=== PATIENT | female | born 1970 | race African-American/Black ===

== ENCOUNTER 2019-02-17 08:26 | Day surgery (SDC) | payer OTHER ==
[2019-02-16 15:17] VITALS: BMI 26.5
[2019-02-17 10:03] VITALS: TEMP 97.5
[2019-02-17 15:59] VITALS: BP 100/64; PULSE 56
== END 2019-02-17 10:45 | disposition home or self-care (01) ==
LOC: JASU-ENDO 08:26
PROVIDERS: ATTEND Internal Medicine Gastroenterology
PROC: 0DJD8ZZ Inspection of Lower Intestinal Tract, Via Natural or Artificial Opening Endoscopic (ICD-10-PCS; principal; 2019-02-17 09:45)
DX: Z12.11 Encounter for screening for malignant neoplasm of colon (principal); D50.9 Iron deficiency anemia, unspecified; K64.8 Other hemorrhoids
CPT/HCPCS: 81025

== ENCOUNTER 2019-03-03 08:30 | Day surgery (SDC) | payer OTHER ==
[2019-02-28 15:37] VITALS: BMI 28.3
[2019-03-03 10:21] VITALS: TEMP 97.6
[2019-03-03 11:19] VITALS: BP 124/65; PULSE 86
--- NOTE | 2019-03-04 13:41 | PATH ---
Surgical Pathology Report Patient Name: FRANCISCO BANUELOS [facility]. Rec. #: [id number] /Age/Gender: 1970 (Age: 48) / F Account: [id number] Location: U-ENDOSCOPY Taken: 03/03/2019 Received: 03/03/2019 Reported: 03/04/2019 Physicians: Varinder Montaño D.O. Specimen(s) Received A: ANTRAL EROSION B: ANGULARIS AND BODY C: GASTRIC POLYP Clinical History Anemia Postoperative diagnosis: Gastric polyp, gastritis Final Diagnosis A. STOMACH, ANTRAL EROSION, BIOPSY: GASTRIC ANTRAL MUCOSA WITH MILD CHRONIC ACTIVE GASTRITIS. IMMUNOHISTOCHEMICAL STAIN FOR H. PYLORI IS NEGATIVE. B. STOMACH, ANGULARIS AND BODY, BIOPSY: GASTRIC BODY MUCOSA WITH MILD CHRONIC GASTRITIS. IMMUNOHISTOCHEMICAL STAIN FOR H. PYLORI IS NEGATIVE. C. GASTRIC POLYP, BIOPSY: FUNDIC GLAND POLYP. IMMUNOHISTOCHEMICAL STAIN FOR H. PYLORI IS NEGATIVE. Electronically Signed Daysi Austin M.D. Gross Description A. Received in formalin, labeled "biopsy antral erosion" are 4 palma, irregular portions of soft tissue ranging from 0.2-0.3 cm. in greatest dimension. The specimens are submitted in toto in one cassette. B. Received in formalin, labeled "biopsy angularis and body" are 3 palma, irregular portions of soft tissue ranging from 0.2-0.4 cm. in greatest dimension. The specimens are submitted in toto in one cassette. C. Received in formalin, labeled "biopsy gastric polyp" are 2 palma, irregular portions of soft tissue measuring 0.2 and 0.5 cm. in greatest dimension. The specimens are submitted in toto in one cassette. DL/03/03/2019 saudi/03/03/2019
== END 2019-03-03 11:18 | disposition home or self-care (01) ==
LOC: JASU-ENDO 08:30
PROVIDERS: ATTEND Internal Medicine Gastroenterology
PROC: 0DB68ZX Excision of Stomach, Via Natural or Artificial Opening Endoscopic, Diagnostic (ICD-10-PCS; principal; 2019-03-03 09:30)
DX: D64.9 Anemia, unspecified (principal); K31.7 Polyp of stomach and duodenum; K25.9 Gastric ulcer, unspecified as acute or chronic, without hemorrhage or perforation; K29.50 Unspecified chronic gastritis without bleeding; E11.9 Type 2 diabetes mellitus without complications; I10 Essential (primary) hypertension; Z79.84 Long term (current) use of oral hypoglycemic drugs
CPT/HCPCS: 81025; 88305-TC; 88342-TC

== ENCOUNTER 2019-11-18 13:57 | Inpatient (IN) | payer OTHER ==
[2019-11-18 16:14] LABS: BASO % 2.5 % (0-2.0); EOS % 6.3 % (0-4.5); LYMPH % 28.8 % (8-40); MCHC 28.9 g/dl (32.0-36.0); MONO % 3.7 % (3.8-10.2); NEUT % 58.7 % (42.8-82.8); RBC 3.89 M/mm3 (3.60-5.2); RDW 23.5 % (11.6-15.6)
[2019-11-18 16:25] LABS: INR 1.03 (0.83-1.09); PROTHROMBIN TIME (PATIENT) 12.1 SEC (9.7-13.0)
[2019-11-18 16:28] LABS: MCH 15.9 pg (25.7-33.7)
[2019-11-18 16:30] LABS: HEMATOCRIT 21.4 % (32.4-45.2); HEMOGLOBIN 6.2 GM/dL (10.7-15.3)
[2019-11-18 16:55] LABS: BILIRUBIN,TOTAL 0.7 mg/dL (0.2-1); BLOOD UREA NITROGEN 9.5 mg/dL (7-18); CALCIUM 8.9 mg/dL (8.5-10.1); CREATININE 0.7 mg/dL (0.55-1.3); POTASSIUM 4.3 mmol/L (3.5-5.1); TOT PROT 7.7 g/dl (6.4-8.2)
[2019-11-18] MEDS ORDERED: ACETAMINOPHEN 325 MG TABLET (FP) PO PRN (17:58)
[2019-11-18 19:32] LABS: ANISOCYTOSIS 3+; MACROCYTOSIS 1+; OVALOCYTE 1+; PLATELET ESTIMATE NORMAL; TEAR DROP CELLS 1+
[2019-11-18] MEDS ORDERED: GABAPENTIN 100 MG CAPSULE ONE (21:07)
[2019-11-18] MEDS: INSULIN SLIDING SCALE (NOVOLOG) 1 VIAL SQ SCH (21:32)
[2019-11-18] MEDS: GABAPENTIN 100 MG CAPSULE PO SCH (21:32)
[2019-11-18] MEDS ORDERED: INSULIN SLIDING SCALE (NOVOLOG) 1 VIAL SQ SCH (22:00)
[2019-11-18] MEDS ORDERED: INSULIN (LEVEMIR) 100 UNITS/ML UNITS SQ SCH (22:00)
[2019-11-19 02:10] VITALS: BMI 29.2
[2019-11-19] MEDS: INSULIN SLIDING SCALE (NOVOLOG) 1 VIAL SQ SCH ×2 (06:11→11:31)
[2019-11-19 07:44] LABS: HEMATOCRIT 28.7 % (32.4-45.2); HEMOGLOBIN 8.4 GM/dL (10.7-15.3); MCHC 29.3 g/dl (32.0-36.0); MEAN CELL VOLUME 61.2 fl (80-96); MEAN PLT VOLUME 8.4 fl (7.5-11.1); PLATELET COUNT 210 K/MM3 (134-434); RBC 4.69 M/mm3 (3.60-5.2); RDW 29.2 % (11.6-15.6); WHITE BLOOD COUNT 5.7 K/mm3 (4.0-10.0)
[2019-11-19 08:14] LABS: ALBUMIN 3.5 g/dl (3.4-5.0); BILIRUBIN,TOTAL 1.2 mg/dL (0.2-1); CALCIUM 8.7 mg/dL (8.5-10.1); CREATININE 0.6 mg/dL (0.55-1.3); POTASSIUM 4.1 mmol/L (3.5-5.1); TOT PROT 6.8 g/dl (6.4-8.2)
[2019-11-19] MEDS ORDERED: IRON SUCROSE INJECTION 200 MG in SODIUM CHLORIDE 90 ML IVPB ONE (08:47)
[2019-11-19] MEDS ORDERED: PT OWN MED DRAWER 7, Y5N ONE (09:29)
[2019-11-19] MEDS: GABAPENTIN 100 MG CAPSULE PO SCH (09:33)
[2019-11-19] MEDS ORDERED: NEBIVOLOL 10 MG TABLET (FP) PO SCH (10:00)
[2019-11-19] MEDS ORDERED: FERROUS SO4 325 MG TABLET (FP) PO SCH (10:00)
[2019-11-19] MEDS ORDERED: LISINOPRIL 20 MG TABLET PO SCH (10:00)
[2019-11-19 10:28] VITALS: BP 132/79; PULSE 76; TEMP 98.1
== END 2019-11-19 14:37 | disposition home or self-care (01) | DRG 663 ==
LOC: JER 13:57 → JERBED 17:01 → J8W 11-19 01:45
PROVIDERS: ATTEND Internal Medicine
PROC: 30233N1 Transfusion of Nonautologous Red Blood Cells into Peripheral Vein, Percutaneous Approach (ICD-10-PCS; principal; 2019-11-18)
DX: D62 Acute posthemorrhagic anemia (principal); D25.9 Leiomyoma of uterus, unspecified; N92.0 Excessive and frequent menstruation with regular cycle; D50.9 Iron deficiency anemia, unspecified; E78.5 Hyperlipidemia, unspecified; E11.21 Type 2 diabetes mellitus with diabetic nephropathy; E11.42 Type 2 diabetes mellitus with diabetic polyneuropathy; I10 Essential (primary) hypertension; K64.9 Unspecified hemorrhoids
CPT/HCPCS: 36415; 36430; 80053; 82962; 85025; 85027; 85610; 86850; 86900; 86901; 86922; 93005; 93010; 99285-25; J1756; P9058; U0003

== ENCOUNTER 2020-08-03 06:24 | Inpatient (IN) | payer OTHER ==
[2020-08-03] MEDS ORDERED: morphine SULFATE 4 MG/ML VIAL ONE (06:35)
[2020-08-03] MEDS ORDERED: morphine SULFATE 4 MG/ML VIAL IVPUSH ONE (06:39)
[2020-08-03] MEDS ORDERED: ONDANSETRON 4 MG/2 ML VIAL IVPUSH ONE (07:00)
[2020-08-03] MEDS ORDERED: SODIUM CHLORIDE 1,000 ML IV STA ×2 (07:11→08:39)
[2020-08-03 07:12] LABS: BASO % 0.4 % (0-2.0); EOS % 3.3 % (0-4.5); HEMATOCRIT 42.6 % (32.4-45.2); HEMOGLOBIN 14.1 GM/dL (10.7-15.3); LYMPH % 8.5 % (8-40); MCH 26.7 pg (25.7-33.7); MCHC 33.1 g/dl (32.0-36.0); MEAN CELL VOLUME 80.6 fl (80-96); MEAN PLT VOLUME 8.6 fl (7.5-11.1); MONO % 1.7 % (3.8-10.2); NEUT % 86.1 % (42.8-82.8); PLATELET COUNT 159 K/MM3 (134-434); RBC 5.28 M/mm3 (3.60-5.2); RDW 14.9 % (11.6-15.6); WHITE BLOOD COUNT 9.9 K/mm3 (4.0-10.0)
[2020-08-03] MEDS ORDERED: ACETAMINOPHEN 1000 MG/100 ML VIAL (NON FORMULARY) IVPB ONE (07:12)
[2020-08-03 07:16] LABS: INR 0.94 (0.83-1.09); PROTHROMBIN TIME (PATIENT) 11.6 SEC (9.7-13.0)
[2020-08-03 07:19] LABS: ACTIVATED PTT 26.4 SECONDS (25.2-36.5)
[2020-08-03] MEDS ORDERED: ACETAMINOPHEN INJECTION 100 ML IVPB ONE (07:19)
[2020-08-03] MEDS ORDERED: ONDANSETRON 4 MG/2 ML VIAL ONE (07:19)
[2020-08-03 07:24] LABS: CHLORIDE 107 mmol/L (98-107); SODIUM 138 mmol/L (136-145)
[2020-08-03 07:26] LABS: ALBUMIN 3.7 g/dl (3.4-5.0); ANION GAP 6 MMOL/L (8-16); BLOOD UREA NITROGEN 9.4 mg/dL (7-18); CALCIUM 9.1 mg/dL (8.5-10.1); CO2 24 mmol/L (21-32)
[2020-08-03 07:27] LABS: GLUCOSE,RANDOM 234 mg/dL (74-106)
[2020-08-03 07:29] LABS: SGPT/ALT 42 U/L (13-61)
[2020-08-03 07:30] LABS: CREATININE 0.8 mg/dL (0.55-1.3); SGOT/AST 64 U/L (15-37)
[2020-08-03 07:31] LABS: BILIRUBIN,TOTAL 0.9 mg/dL (0.2-1); TOT PROT 7.5 g/dl (6.4-8.2)
[2020-08-03 07:34] LABS: ALK PHOS 106 U/L (45-117)
[2020-08-03 07:36] LABS: LACTIC ACID 2.6 mmol/L (0.4-2.0)
[2020-08-03] MEDS ORDERED: PIPERACILLIN/TAZOB 3.375 GM 3.375 GM in DEXTROSE 5%-WATER - 50 ML IVPB ONE (07:50)
[2020-08-03] MEDS ORDERED: LACTATED RINGERS SOLUTION 1000 ML INFUS.BAG IV ONE (07:50)
[2020-08-03] MEDS ORDERED: PIPERACILLIN/TAZOB 3.375 GM 3.375 GM/50 ML BAG IVPB ONE (08:38)
[2020-08-03 10:33] LABS: URINE APPEARANCE CLEAR; URINE BILIRUBIN NEGATIVE (NEGATIVE); URINE COLOR YELLOW; URINE GLUCOSE (UA) NEGATIVE (NEGATIVE); URINE KETONE NEGATIVE (NEGATIVE)
[2020-08-03 10:34] LABS: PH,URINE 5.5 (5.0-8.0); URINE LEUK ESTERASE NEGATIVE (NEGATIVE); URINE NITRITE NEGATIVE (NEGATIVE); URINE PROTEIN NEGATIVE (NEGATIVE); URINE UROBILINOGEN 0.2 mg/dL (0.2-1.0)
[2020-08-03 10:37] LABS: CALCIUM 8.6 mg/dL (8.5-10.1)
[2020-08-03 10:38] LABS: BLOOD UREA NITROGEN 9.3 mg/dL (7-18)
[2020-08-03 10:40] LABS: CREATININE 0.7 mg/dL (0.55-1.3)
[2020-08-03 11:30] LABS: LACTIC ACID 2.5 mmol/L (0.4-2.0)
[2020-08-03] MEDS ORDERED: PIPERACILLIN/TAZOBACTAM 3.375 GM VIAL IVPB ONE ×3 (16:46→22:32)
[2020-08-03] MEDS ORDERED: DEXTROSE 5%-WATER - 50 ML IVPB ONE ×3 (16:46→22:32)
[2020-08-03] MEDS: MORPHINE SULFATE 2 MG/ML VIAL IVPUSH PRN (16:49)
[2020-08-03] MEDS: LACTATED RINGERS SOLUTION 1,000 ML IV SCH (16:50)
[2020-08-03] MEDS: PIPERACILLIN/TAZOB 3.375 GM 3.375 GM in DEXTROSE 5%-WATER - 50 ML IVPB SCH ×2 (16:51→22:00)
[2020-08-03] MEDS: INSULIN SLIDING SCALE (NOVOLOG) 1 VIAL SQ SCH ×2 (17:12→22:40)
[2020-08-03] MEDS: ACETAMINOPHEN 1000 MG/100 ML VIAL (NON FORMULARY) IVPB PRN (22:36)
[2020-08-04] MEDS ORDERED: LACTATED RINGERS SOLUTION 1,000 ML IV SCH (00:01)
[2020-08-04] MEDS: MORPHINE SULFATE 2 MG/ML VIAL IVPUSH PRN (00:20)
[2020-08-04] MEDS: PIPERACILLIN/TAZOB 3.375 GM 3.375 GM in DEXTROSE 5%-WATER - 50 ML IVPB SCH ×5 (04:00→21:35)
[2020-08-04] MEDS ORDERED: PIPERACILLIN/TAZOBACTAM 3.375 GM VIAL IVPB ONE ×3 (04:50→19:34)
[2020-08-04] MEDS ORDERED: DEXTROSE 5%-WATER - 50 ML IVPB ONE ×3 (04:50→19:34)
[2020-08-04] MEDS: INSULIN SLIDING SCALE (NOVOLOG) 1 VIAL SQ SCH ×4 (06:19→21:35)
[2020-08-04 08:07] LABS: HEMATOCRIT 37.6 % (32.4-45.2); HEMOGLOBIN 12.4 GM/dL (10.7-15.3); MCH 26.5 pg (25.7-33.7); MCHC 32.9 g/dl (32.0-36.0); MEAN CELL VOLUME 80.7 fl (80-96); MEAN PLT VOLUME 8.7 fl (7.5-11.1); PLATELET COUNT 145 K/MM3 (134-434); RBC 4.66 M/mm3 (3.60-5.2); RDW 15.4 % (11.6-15.6); WHITE BLOOD COUNT 6.7 K/mm3 (4.0-10.0)
[2020-08-04 08:28] LABS: ALBUMIN 3.3 g/dl (3.4-5.0); BLOOD UREA NITROGEN 7.6 mg/dL (7-18); CALCIUM 9.2 mg/dL (8.5-10.1)
[2020-08-04 08:29] LABS: MAGNESIUM 1.9 mg/dL (1.8-2.4)
[2020-08-04 08:31] LABS: CREATININE 0.7 mg/dL (0.55-1.3)
[2020-08-04 08:32] LABS: PHOSPHOROUS 3.4 mg/dL (2.5-4.9)
[2020-08-04 08:33] LABS: BILIRUBIN,TOTAL 2.1 mg/dL (0.2-1); TOT PROT 6.4 g/dl (6.4-8.2)
[2020-08-04] MEDS ORDERED: PT OWN MED DRAWER 7, Y5N ONE (09:59)
[2020-08-04] MEDS: LISINOPRIL 20 MG TABLET PO SCH ×2 (10:01→12:11)
[2020-08-04] MEDS: ACETAMINOPHEN 1000 MG/100 ML VIAL (NON FORMULARY) IVPB PRN (11:18)
[2020-08-05] MEDS ORDERED: DEXTROSE 5%-WATER - 50 ML IVPB ONE ×4 (02:27→21:47)
[2020-08-05] MEDS ORDERED: PIPERACILLIN/TAZOBACTAM 3.375 GM VIAL IVPB ONE ×4 (02:27→21:46)
[2020-08-05] MEDS: PIPERACILLIN/TAZOB 3.375 GM 3.375 GM in DEXTROSE 5%-WATER - 50 ML IVPB SCH ×7 (03:10→22:04)
[2020-08-05] MEDS: MORPHINE SULFATE 2 MG/ML VIAL IVPUSH PRN (04:01)
[2020-08-05] MEDS: INSULIN SLIDING SCALE (NOVOLOG) 1 VIAL SQ SCH ×4 (06:12→22:03)
[2020-08-05 07:49] LABS: BASO % 0.6 % (0-2.0); EOS % 8.8 % (0-4.5); HEMATOCRIT 35.5 % (32.4-45.2); HEMOGLOBIN 11.6 GM/dL (10.7-15.3); MCH 26.2 pg (25.7-33.7); MCHC 32.7 g/dl (32.0-36.0); MEAN CELL VOLUME 80.1 fl (80-96); MEAN PLT VOLUME 8.6 fl (7.5-11.1); MONO % 5.8 % (3.8-10.2); NEUT % 64.8 % (42.8-82.8); PLATELET COUNT 139 K/MM3 (134-434); RBC 4.42 M/mm3 (3.60-5.2); RDW 15.5 % (11.6-15.6); WHITE BLOOD COUNT 4.1 K/mm3 (4.0-10.0)
[2020-08-05 08:34] LABS: CALCIUM 8.8 mg/dL (8.5-10.1)
[2020-08-05 08:36] LABS: BLOOD UREA NITROGEN 8.6 mg/dL (7-18)
[2020-08-05 08:38] LABS: CREATININE 0.5 mg/dL (0.55-1.3)
[2020-08-05 08:41] LABS: BILIRUBIN,TOTAL 1.4 mg/dL (0.2-1)
[2020-08-05] MEDS: METOCLOPRAMIDE HCL INJECTION 10 MG/2 ML VIAL IVPUSH PRN (09:49)
[2020-08-05] MEDS: LACTATED RINGERS SOLUTION 1,000 ML IV SCH (09:57)
[2020-08-05] MEDS: NEBIVOLOL 10 MG TABLET (FP) PO SCH (18:05)
[2020-08-05] MEDS: LISINOPRIL 20 MG TABLET PO SCH (18:05)
[2020-08-05] MEDS ORDERED: PT OWN MED DRAWER 7, Y5N ONE (18:09)
[2020-08-05] MEDS: LACTATED RINGERS SOLUTION 1,000 ML/1,000 ML INFUS.BAG IV SCH ×2 (19:22→22:08)
[2020-08-06] MEDS ORDERED: PIPERACILLIN/TAZOBACTAM 3.375 GM VIAL IVPB ONE ×4 (02:50→20:12)
[2020-08-06] MEDS ORDERED: DEXTROSE 5%-WATER - 50 ML IVPB ONE ×4 (02:51→20:12)
[2020-08-06] MEDS: PIPERACILLIN/TAZOB 3.375 GM 3.375 GM in DEXTROSE 5%-WATER - 50 ML IVPB SCH ×4 (03:03→20:36)
[2020-08-06] MEDS: INSULIN SLIDING SCALE (NOVOLOG) 1 VIAL SQ SCH ×4 (06:12→21:03)
[2020-08-06 08:08] LABS: BASO % 0.7 % (0-2.0); EOS % 10.7 % (0-4.5); HEMATOCRIT 36.7 % (32.4-45.2); HEMOGLOBIN 12.1 GM/dL (10.7-15.3); LYMPH % 30.1 % (8-40); MCH 26.3 pg (25.7-33.7); MCHC 32.9 g/dl (32.0-36.0); MEAN CELL VOLUME 79.9 fl (80-96); MEAN PLT VOLUME 8.6 fl (7.5-11.1); MONO % 5.4 % (3.8-10.2); NEUT % 53.1 % (42.8-82.8); PLATELET COUNT 158 K/MM3 (134-434); RDW 14.7 % (11.6-15.6); WHITE BLOOD COUNT 4.6 K/mm3 (4.0-10.0)
[2020-08-06 08:28] LABS: ALBUMIN 3.1 g/dl (3.4-5.0); BLOOD UREA NITROGEN 5.3 mg/dL (7-18); CALCIUM 8.9 mg/dL (8.5-10.1)
[2020-08-06 08:32] LABS: BILIRUBIN,TOTAL 1.2 mg/dL (0.2-1); CREATININE 0.5 mg/dL (0.55-1.3); TOT PROT 6.2 g/dl (6.4-8.2)
[2020-08-06] MEDS ORDERED: PT OWN MED DRAWER 7, Y5N ONE (09:50)
[2020-08-06] MEDS: FAMOTIDINE 20 MG/50 ML IVPB 20 MG/50 ML MG IVPB SCH ×2 (09:57→21:03)
[2020-08-06] MEDS: LACTATED RINGERS SOLUTION 1,000 ML/1,000 ML INFUS.BAG IV SCH ×2 (09:57→19:32)
[2020-08-06] MEDS: NEBIVOLOL 10 MG TABLET (FP) PO SCH (09:57)
[2020-08-06] MEDS: LISINOPRIL 20 MG TABLET PO SCH (09:57)
[2020-08-06] MEDS: ACETAMINOPHEN 1000 MG/100 ML VIAL (NON FORMULARY) IVPB PRN ×2 (10:29→20:04)
[2020-08-07] MEDS ORDERED: PIPERACILLIN/TAZOBACTAM 3.375 GM VIAL IVPB ONE ×4 (01:45→21:10)
[2020-08-07] MEDS ORDERED: DEXTROSE 5%-WATER - 50 ML IVPB ONE ×4 (01:45→21:11)
[2020-08-07] MEDS: PIPERACILLIN/TAZOB 3.375 GM 3.375 GM in DEXTROSE 5%-WATER - 50 ML IVPB SCH ×4 (02:39→21:18)
[2020-08-07] MEDS: ACETAMINOPHEN 1000 MG/100 ML VIAL (NON FORMULARY) IVPB PRN ×2 (04:51→23:35)
[2020-08-07] MEDS: METOCLOPRAMIDE HCL INJECTION 10 MG/2 ML VIAL IVPUSH PRN (05:51)
[2020-08-07] MEDS: INSULIN SLIDING SCALE (NOVOLOG) 1 VIAL SQ SCH ×4 (06:04→21:22)
[2020-08-07 07:16] LABS: BASO % 0.7 % (0-2.0); HEMATOCRIT 35.5 % (32.4-45.2); HEMOGLOBIN 11.7 GM/dL (10.7-15.3); LYMPH % 34.4 % (8-40); MCH 26.3 pg (25.7-33.7); MCHC 32.9 g/dl (32.0-36.0); MEAN CELL VOLUME 79.9 fl (80-96); MONO % 5.3 % (3.8-10.2); NEUT % 50.6 % (42.8-82.8); PLATELET COUNT 194 K/MM3 (134-434); RBC 4.44 M/mm3 (3.60-5.2); RDW 14.9 % (11.6-15.6); WHITE BLOOD COUNT 4.8 K/mm3 (4.0-10.0)
[2020-08-07 07:51] LABS: ALBUMIN 3.3 g/dl (3.4-5.0); BLOOD UREA NITROGEN 6.3 mg/dL (7-18); CALCIUM 9.1 mg/dL (8.5-10.1)
[2020-08-07 07:56] LABS: BILIRUBIN,TOTAL 1.3 mg/dL (0.2-1); CREATININE 0.6 mg/dL (0.55-1.3); TOT PROT 6.6 g/dl (6.4-8.2)
[2020-08-07] MEDS ORDERED: PT OWN MED DRAWER 7, Y5N ONE (09:59)
[2020-08-07] MEDS: NEBIVOLOL 10 MG TABLET (FP) PO SCH (10:08)
[2020-08-07] MEDS: LISINOPRIL 20 MG TABLET PO SCH (10:08)
[2020-08-07] MEDS: FAMOTIDINE 20 MG/50 ML IVPB 20 MG/50 ML MG IVPB SCH ×2 (10:47→23:26)
[2020-08-07] MEDS: LACTATED RINGERS SOLUTION 1,000 ML/1,000 ML INFUS.BAG IV SCH ×2 (17:19→23:30)
[2020-08-08] MEDS ORDERED: PIPERACILLIN/TAZOBACTAM 3.375 GM VIAL IVPB ONE ×3 (03:20→14:55)
[2020-08-08] MEDS ORDERED: DEXTROSE 5%-WATER - 50 ML IVPB ONE ×3 (03:20→14:55)
[2020-08-08] MEDS: PIPERACILLIN/TAZOB 3.375 GM 3.375 GM in DEXTROSE 5%-WATER - 50 ML IVPB SCH ×3 (03:21→15:17)
[2020-08-08] MEDS: NEBIVOLOL 10 MG TABLET (FP) PO SCH ×2 (06:40→10:15)
[2020-08-08] MEDS: INSULIN SLIDING SCALE (NOVOLOG) 1 VIAL SQ SCH ×4 (06:44→22:08)
[2020-08-08 08:32] LABS: BASO % 0.8 % (0-2.0); EOS % 9.3 % (0-4.5); HEMATOCRIT 38.6 % (32.4-45.2); HEMOGLOBIN 12.8 GM/dL (10.7-15.3); LYMPH % 36.1 % (8-40); MCH 26.6 pg (25.7-33.7); MCHC 33.1 g/dl (32.0-36.0); MEAN CELL VOLUME 80.4 fl (80-96); MEAN PLT VOLUME 7.8 fl (7.5-11.1); MONO % 5.2 % (3.8-10.2); NEUT % 48.6 % (42.8-82.8); PLATELET COUNT 215 K/MM3 (134-434); RDW 14.6 % (11.6-15.6); WHITE BLOOD COUNT 5.2 K/mm3 (4.0-10.0)
[2020-08-08] MEDS: LISINOPRIL 20 MG TABLET PO SCH (09:09)
[2020-08-08] MEDS: FAMOTIDINE 20 MG/50 ML IVPB 20 MG/50 ML MG IVPB SCH ×2 (09:09→22:04)
[2020-08-08] MEDS: LACTATED RINGERS SOLUTION 1,000 ML/1,000 ML INFUS.BAG IV SCH ×2 (09:10→15:17)
[2020-08-08 09:11] LABS: CALCIUM 9.2 mg/dL (8.5-10.1)
[2020-08-08 09:12] LABS: ALBUMIN 3.6 g/dl (3.4-5.0); BLOOD UREA NITROGEN 5.8 mg/dL (7-18)
[2020-08-08 09:15] LABS: CREATININE 0.6 mg/dL (0.55-1.3)
[2020-08-08 09:17] LABS: BILIRUBIN,TOTAL 1.1 mg/dL (0.2-1); TOT PROT 7.1 g/dl (6.4-8.2)
[2020-08-08] MEDS ORDERED: ACETAMINOPHEN 1000 MG/100 ML VIAL (NON FORMULARY) IVPB ONE (09:18)
[2020-08-08] MEDS ORDERED: BUPIVACAINE HCL/PF 0.5% (5MG/ML) 10 ML VIAL ONE (12:14)
[2020-08-08] MEDS ORDERED: ONDANSETRON 4 MG/2 ML VIAL IVPUSH PRN (12:37)
[2020-08-08] MEDS ORDERED: oxyCODONE HCL 5 MG TABLET PO PRN (12:37)
[2020-08-08] MEDS ORDERED: ROCURONIUM BROMIDE 50 MG/5 ML SYRINGE ONE (13:57)
[2020-08-08] MEDS ORDERED: PROPOFOL 20 ML ONE (13:57)
[2020-08-08] MEDS ORDERED: MIDAZOLAM HCL 2 MG/2 ML SINGLE DOSE VIAL ONE (13:57)
[2020-08-08] MEDS ORDERED: SODIUM CHLORIDE 1,000 ML IV SCH (16:45)
[2020-08-08] MEDS ORDERED: BUPIVACAINE HCL/PF 0.5% (5 MG/ML) 30 ML VIAL IJ ONE (18:13)
[2020-08-08] MEDS ORDERED: FAMOTIDINE 20 MG PREMIXED IVPB IVPB ONE (19:30)
[2020-08-08] MEDS ORDERED: FAMOTIDINE 20 MG/50 ML IVPB 20 MG/50 ML MG IVPB ONE (19:33)
[2020-08-08] MEDS ORDERED: ONDANSETRON 4 MG/2 ML VIAL ONE (19:36)
[2020-08-08] MEDS: ONDANSETRON 4 MG/2 ML VIAL IVPUSH PRN (19:40)
[2020-08-08] MEDS: SODIUM CHLORIDE 1,000 ML IV SCH (20:10)
[2020-08-08] MEDS ORDERED: INSULIN (NOVOLOG) ASPART 100 UNITS/ML 10ML VIAL ONE (20:42)
[2020-08-09] MEDS: IBUPROFEN 800 MG/8 ML IJ IVPB PRN ×3 (00:24→23:44)
[2020-08-09] MEDS: METOCLOPRAMIDE HCL INJECTION 10 MG/2 ML VIAL IVPUSH PRN ×3 (00:33→23:44)
[2020-08-09] MEDS: SODIUM CHLORIDE 1,000 ML IV SCH ×4 (01:41→20:57)
[2020-08-09] MEDS: ACETAMINOPHEN 1000 MG/100 ML VIAL (NON FORMULARY) IVPB PRN ×2 (04:15→11:22)
[2020-08-09] MEDS: ONDANSETRON 4 MG/2 ML VIAL IVPUSH PRN (05:03)
[2020-08-09] MEDS: SIMETHICONE 80 MG TAB.CHEW (FP) PO PRN ×2 (05:05→13:55)
[2020-08-09] MEDS: INSULIN SLIDING SCALE (NOVOLOG) 1 VIAL SQ SCH ×4 (06:00→21:43)
[2020-08-09 07:29] LABS: BASO % 0.4 % (0-2.0); EOS % 0.1 % (0-4.5); HEMATOCRIT 36.1 % (32.4-45.2); LYMPH % 10.6 % (8-40); MCH 26.4 pg (25.7-33.7); MCHC 33.3 g/dl (32.0-36.0); MEAN CELL VOLUME 79.4 fl (80-96); MEAN PLT VOLUME 7.5 fl (7.5-11.1); MONO % 2.6 % (3.8-10.2); NEUT % 86.3 % (42.8-82.8); PLATELET COUNT 224 K/MM3 (134-434); RBC 4.55 M/mm3 (3.60-5.2); RDW 14.8 % (11.6-15.6); WHITE BLOOD COUNT 9.5 K/mm3 (4.0-10.0)
[2020-08-09 07:48] LABS: CALCIUM 8.7 mg/dL (8.5-10.1); CREATININE 0.6 mg/dL (0.55-1.3)
[2020-08-09 07:49] LABS: ALBUMIN 3.5 g/dl (3.4-5.0); BLOOD UREA NITROGEN 5.4 mg/dL (7-18)
[2020-08-09 07:50] LABS: BILIRUBIN,TOTAL 0.8 mg/dL (0.2-1); TOT PROT 7.1 g/dl (6.4-8.2)
[2020-08-09] MEDS: oxyCODONE HCL 5 MG TABLET PO PRN ×2 (07:55→13:55)
[2020-08-09] MEDS ORDERED: PT OWN MED DRAWER 7, Y5N ONE (08:57)
[2020-08-09] MEDS: LISINOPRIL 20 MG TABLET PO SCH (09:01)
[2020-08-09] MEDS: FAMOTIDINE 20 MG/50 ML IVPB 20 MG/50 ML MG IVPB SCH ×2 (09:01→21:40)
[2020-08-09] MEDS: NEBIVOLOL 10 MG TABLET (FP) PO SCH (09:02)
[2020-08-09 11:01] VITALS: BMI 32.9
[2020-08-09] MEDS ORDERED: DEXTROSE 5%-WATER - 50 ML IVPB ONE ×2 (11:54→18:05)
[2020-08-09] MEDS ORDERED: PIPERACILLIN/TAZOBACTAM 3.375 GM VIAL IVPB ONE ×2 (11:54→18:05)
[2020-08-09] MEDS: PIPERACILLIN/TAZOB 3.375 GM 3.375 GM in DEXTROSE 5%-WATER - 50 ML IVPB SCH ×2 (11:56→18:20)
[2020-08-09] MEDS ORDERED: BENZOCAINE/MENTH/CETYLPYRD CL 1 EACH LOZENGE MM PRN (12:07)
[2020-08-09] MEDS: LACTOBACILLUS ACIDOPHILUS 1 TABLET PO SCH (12:49)
[2020-08-10] MEDS ORDERED: DEXTROSE 5%-WATER - 50 ML IVPB ONE ×2 (00:06→09:22)
[2020-08-10] MEDS ORDERED: PIPERACILLIN/TAZOBACTAM 3.375 GM VIAL IVPB ONE ×2 (00:06→09:22)
[2020-08-10] MEDS: oxyCODONE HCL 5 MG TABLET PO PRN (00:13)
[2020-08-10] MEDS: PIPERACILLIN/TAZOB 3.375 GM 3.375 GM in DEXTROSE 5%-WATER - 50 ML IVPB SCH ×2 (01:36→09:40)
[2020-08-10] MEDS: INSULIN SLIDING SCALE (NOVOLOG) 1 VIAL SQ SCH (06:06)
[2020-08-10] MEDS: SIMETHICONE 80 MG TAB.CHEW (FP) PO PRN (06:10)
[2020-08-10] MEDS: SODIUM CHLORIDE 1,000 ML IV SCH (06:51)
[2020-08-10 07:57] LABS: ALBUMIN 3.4 g/dl (3.4-5.0); CALCIUM 8.5 mg/dL (8.5-10.1)
[2020-08-10 08:00] LABS: CREATININE 0.6 mg/dL (0.55-1.3)
[2020-08-10 08:01] LABS: BILIRUBIN,TOTAL 0.8 mg/dL (0.2-1)
[2020-08-10 08:02] LABS: TOT PROT 6.7 g/dl (6.4-8.2)
[2020-08-10 08:30] LABS: BASO % 0.9 % (0-2.0); EOS % 2.3 % (0-4.5); HEMATOCRIT 37.2 % (32.4-45.2); LYMPH % 19.3 % (8-40); MCH 25.9 pg (25.7-33.7); MCHC 32.3 g/dl (32.0-36.0); MEAN CELL VOLUME 80.2 fl (80-96); MEAN PLT VOLUME 7.4 fl (7.5-11.1); MONO % 4.4 % (3.8-10.2); NEUT % 73.1 % (42.8-82.8); PLATELET COUNT 245 K/MM3 (134-434); RBC 4.64 M/mm3 (3.60-5.2); RDW 15.4 % (11.6-15.6); WHITE BLOOD COUNT 7.5 K/mm3 (4.0-10.0)
[2020-08-10] MEDS ORDERED: PT OWN MED DRAWER 7, Y5N ONE (09:23)
[2020-08-10] MEDS: LISINOPRIL 20 MG TABLET PO SCH (09:40)
[2020-08-10] MEDS: NEBIVOLOL 10 MG TABLET (FP) PO SCH (09:40)
[2020-08-10] MEDS: LACTOBACILLUS ACIDOPHILUS 1 TABLET PO SCH (09:40)
[2020-08-10] MEDS: FAMOTIDINE 20 MG/50 ML IVPB 20 MG/50 ML MG IVPB SCH (09:42)
[2020-08-10] MEDS ORDERED: MAG HYDROX/AL HYDROX/SIMETH 30 ML UNIT-DOSE CUP PO PRN (10:59)
[2020-08-10 11:53] VITALS: PULSE 80; TEMP 98.2
[2020-08-10 12:00] VITALS: BP 157/96
== END 2020-08-10 12:31 | disposition home or self-care (01) | DRG 710 ==
LOC: JER 06:24 → JERBED 12:35 → J8W 15:22
PROVIDERS: ADMIT Student in an Organized Health Care Education/Training Program; ATTEND Internal Medicine
PROC: 0FT44ZZ Resection of Gallbladder, Percutaneous Endoscopic Approach (ICD-10-PCS; principal; 2020-08-08 12:00)
DX: A40.1 Sepsis due to streptococcus, group B (principal); R50.9 Fever, unspecified; R10.11 Right upper quadrant pain; K80.00 Calculus of gallbladder with acute cholecystitis without obstruction; I10 Essential (primary) hypertension; D25.9 Leiomyoma of uterus, unspecified; R11.2 Nausea with vomiting, unspecified; E66.9 Obesity, unspecified; Z68.33 Body mass index [BMI] 33.0-33.9, adult; E87.2 Acidosis; E11.40 Type 2 diabetes mellitus with diabetic neuropathy, unspecified; J45.909 Unspecified asthma, uncomplicated; D50.9 Iron deficiency anemia, unspecified; E78.5 Hyperlipidemia, unspecified; R79.89 Other specified abnormal findings of blood chemistry; R19.7 Diarrhea, unspecified
CPT/HCPCS: 36415; 71045-TC-FY; 74177-TC; 74181-TC; 76705-TC; 76830-TC; 80048; 80053; 80074; 81003; 82103; 82962; 83516; 83605; 83735; 84100; 84484; 85025; 85027; 85610; 85730; 86038; 87040; 87045; 87046; 87070; 87075; 87086; 87186; 87205; 87324; 87449; 88304-TC; 93005; 93010; 94760; 99285-25; C9803; J0131; Q9967; U0003; U0005